=== PATIENT | female | born 1960 | race African-American/Black ===

== ENCOUNTER 2016-03-19 12:58 | Outpatient (CLI) | payer OTHER ==
[2016-03-19 15:45] LABS: Methadone Not Detected (NotDetected); Methamphetamine Not Detected (NotDetected)
[2016-03-19 15:59] LABS: ALT (SGPT) 16 U/L (0-55); AST (SGOT) 19 U/L (5-34); Alkaline Phosphatase 126 U/L (40-150); Anion Gap 11 mmol/L (10-20); BUN (Urea Nitrogen) 14 mg/dL (9.8-20.1); Bilirubin, Total 0.3 mg/dL (0.2-1.2); Calc. Creatinine Clearance 0 mL/min (70-130); Calcium 9.4 mg/dL (7.8-10.44); Carbon Dioxide 28 mmol/L (22-29); Estimated GFR-MDRD Greater than 90; Globulin 3.5 g/dL (2.4-3.5); LDL Cholesterol, Calculated 107 mg/dL; Protein, Total 7.4 g/dL (6.0-8.3)
[2016-03-19 17:43] LABS: Chloride 105 mmol/L (98-107)
== END 2016-03-19 12:59 | disposition home or self-care (01) ==
LOC: NAVSJIPCSP 12:58
PROVIDERS: ATTEND Psychiatry & Neurology Psychiatry
DX: F20.9 Schizophrenia, unspecified (principal)
CPT/HCPCS: 36415; 80053; 80061; 80306; 84443

== ENCOUNTER 2017-06-19 12:09 | Outpatient (CLI) | payer MEDICARE, MEDICAID ==
--- NOTE | 2017-06-19 13:46 | RAD ---
RIGHT KNEE FOUR VIEWS: History: Acute pain. Comparison: 11-22-14 FINDINGS: No significant joint effusion. There is mild to moderate tricompartmental degenerative change. Osteop hyte formation in the medial lateral compartment is noted. No fracture. IMPRESSION: Degenerative changes. No fracture. POS: [facility]
--- NOTE | 2017-06-21 11:34 | ULT ---
RIGHT LOWER EXTREMITY VENOUS DOPPLER ULTRASOUND: Date: 06/19/17 COMPARISON: None. HISTORY: Right knee pain for a month. These images are provided for interpretation on 06/21/17. TECHNIQUE: Multiplanar Carter scale sonographic imaging of the venous structures of the right lower extremity obta ined with color flow and spectral analysis. FINDINGS: Right common femoral vein, greater saphenous vein, profunda femoral vein, femoral vein, popliteal vei n, and posterior tibial vein are patent. There is normal blood flow, augmentation, and compression wi thin the deep venous system of the right lower extremity with no evidence for deep venous thrombosis. There are prominent superficial varicosities in the mid and inferior region of the right knee which appear to emanate from the greater saphenous vein. Significant venous reflux is noted within the dist al greater saphenous vein at the level of the knee. IMPRESSION: 1. No evidence for deep venous thrombosis of the right lower extremity. 2. Superficial patent varicosities about the right knee, which appear to emanate from the greater sa phenous vein. Reflux is noted within the distal greater saphenous vein, which could be better assesse d with dedicated venous reflux study of the greater and lesser saphenous veins. POS: [facility]
== END 2017-06-19 12:10 | disposition home or self-care (01) ==
LOC: NAV RAD 12:09
DX: M25.561 Pain in right knee (principal); M17.11 Unilateral primary osteoarthritis, right knee; I87.8 Other specified disorders of veins; M79.604 Pain in right leg

== ENCOUNTER 2021-04-17 14:31 | Outpatient (CLI) | payer MEDICARE, MEDICAID | END 2021-04-17 14:32 | disposition home or self-care (01) | LOC: NAV RAD 14:31 | PROVIDERS: ATTEND Nurse Practitioner Family | DX: M17.11 Unilateral primary osteoarthritis, right knee (principal) ==

== ENCOUNTER 2022-10-29 20:49 | Emergency (ER) | payer OTHER ==
[2022-10-29 21:24] LABS: #Eosinphils 0.1 thou/uL (0.0-0.7); #Lymphocytes 1.1 thou/uL (1.20-3.40); #Monocytes 0.5 thou/uL (0.11-0.59); #Neutrophils 3.5 thou/uL (1.40-6.50); %Basophils 0.9 % (0.0-1.0); %Lymphocytes 20.6 % (21.0-51.0); %Monocytes 9.7 % (0.0-10.0); %Neutrophils 67.7 % (42.0-75.0); Hematocrit 41.3 % (36.0-47.0); Hemoglobin 12.9 g/dL (12.0-16.0); Mean Corpuscular HGB CONC 31.3 g/dL (32.0-36.0); Mean Corpuscular Hemoglobin 29.5 pg (27.0-31.0); Mean Corpuscular Volume 94.2 fl (78.0-98.0); Mean Platelet Volume 10.1 fL (7.4-10.4); Platelet Count 156 10x3/uL (130-400); RBC Distribution Width 12.8 % (11.5-14.5); Red Blood Cell (RBC) Count 4.38 mill/uL (4.20-5.40); White Blood Cell (WBC) Count 5.1 10x3/uL (4.8-10.8)
[2022-10-29 21:30] LABS: Bilirubin Negative (Negative); Blood, Urine Negative (Negative); Clarity Clear (Clear); Glucose, Urine (Dipstick) Negative (Negative); Ketone, Urine Negative (Negative); Leukocyte Small (Negative); Nitrite Negative (Negative); Protein, Urine (Dipstick) Negative (Neg-Trace); Urobilinogen 0.2 mg/dL (Less than 2)
[2022-10-29] MEDS ORDERED: Ondansetron PF 4 MG/2 ML Vial ONE (21:30)
[2022-10-29 21:34] LABS: Bacteria/HPF Rare-Few HPF (None Seen); CAUTI Indications for Culture Dysuria,urgency,freq; RBC/HPF 0-3 HPF (0-3); Urine Culture Reflex No No; WBC/HPF 0-3 HPF (0-3)
[2022-10-29 21:43] LABS: ALT (SGPT) 15 U/L (8-55); AST (SGOT) 18 U/L (5-34); Alkaline Phosphatase 102 U/L (40-110); Anion Gap 16 mmol/L (10-20); BUN (Urea Nitrogen) 17 mg/dL (9.8-20.1); Bilirubin, Total 0.3 mg/dL (0.2-1.2); Calc. Creatinine Clearance 0 mL/min (70-130); Calcium 9.8 mg/dL (7.8-10.44); Carbon Dioxide 23 mmol/L (23-31); Chloride 100 mmol/L (98-107); Estimated GFR 89; Globulin 3.6 g/dL (2.4-3.5); Glucose 103 mg/dL (80-115); Lipase 24 U/L (8-78); Magnesium 1.8 mg/dL (1.6-2.6); Potassium 3.8 mmol/L (3.5-5.1); Protein, Total 7.6 g/dL (5.8-8.1); Sodium 135 mmol/L (136-145); Troponin I Less than 0.010 ng/mL (< 0.028)
[2022-10-30 01:20] LABS: Troponin I Less than 0.010 ng/mL (< 0.028)
== END 2022-10-30 01:57 | disposition home or self-care (01) ==
LOC: NAV ERS 20:49
DX: R06.02 Shortness of breath (principal); R11.0 Nausea; J45.909 Unspecified asthma, uncomplicated; Z79.899 Other long term (current) drug therapy
CPT/HCPCS: 71045; 80053; 81001; 83690; 83735; 83880; 84484; 85025; 93005; 96374; J2405

== ENCOUNTER 2023-05-29 09:04 | Outpatient (CLI) | payer OTHER | END 2023-05-29 09:05 | disposition home or self-care (01) | LOC: NAV RAD 09:04 | PROVIDERS: ATTEND Nurse Practitioner Family | DX: M17.11 Unilateral primary osteoarthritis, right knee (principal) ==